=== PATIENT | male | born 2000 | race Caucasian/White ===

== ENCOUNTER 2018-04-30 12:50 | Emergency (ER) | payer MEDICAID, SELFPAY ==
[2018-04-30 12:51] VITALS: BP 114/65; PULSE 63; RESP 16; TEMP 36.8; O2SAT 97; BMI 18.8
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
[2018-04-30] MEDS: Naproxen 500 MG Tablet PO (13:16)
== END 2018-04-30 13:34 | disposition home or self-care (01) ==
PROVIDERS: Emergency Provider Emergency Medicine; Family Provider Pediatrics; PCP Pediatrics
DX: S90.01XA Contusion of right ankle, initial encounter (principal); W22.8XXA Striking against or struck by other objects, initial encounter; Y93.55 Activity, bike riding; Y92.830 Public park as the place of occurrence of the external cause; Y99.8 Other external cause status
CPT/HCPCS: 73610; 99283

== ENCOUNTER 2019-03-20 14:19 | Emergency (ER) | payer SELFPAY ==
[2019-03-20 14:20] VITALS: BP 132/70; PULSE 76; RESP 14; TEMP 36.7; O2SAT 98; BMI 19.5
--- NOTE | 2019-03-20 15:04 | ED.VIS.DENTA ---
History of Present Illness Chief Complaint: Dental Informant: Patient Onset: Weeks - 1 Context: Gradual Onset Timing: Waxes and wanes Quality: ache/sore Location: right lower molars Current Severity: Moderate Maximum Severity: Moderate Worsened by: eating Relieved by: - - pcn Associated Symptoms: Jaw Swelling Narrative: Dental pain and swelling that was improved after he started taking some leftover penicillin, but now penicillin is not helping so he stopped taking it 2 days ago. No fevers or systemic symptoms or trouble breathing. Past Medical History - Allergies and Home Meds Allergies/Adverse Reactions: Allergies venom-honey bee [bee venom (honey bee)] Allergy (Verified 04/30/18 12:53) Swelling Primary Care Physician: Leonor Laura MD [Primary Care Provider] - Smoking Status: Current every day smoker Review of Systems General: Denies: Chills, Fever ENT: Reports: - - Dental pain. Denies: Sore throat Respiratory: Denies: Dyspnea, Cough, Dyspnea on exertion Skin: Denies: Rash, Wounds Physical Exam Vital Signs/Narrative: Vital Signs Temp Pulse Resp BP Pulse Ox 03/20/19 14:20 98.1 F 76 14 132/70 H 98 Inital Vital Signs reviewed: Yes General: Well nourished, Well developed Head: Normocephalic, Atraumatic Mouth/Throat: Dental abscess - Near first and second molars, left mandibular. Focal swelling around the jaw on the left opposite this. With pushing in the gingiva and associated soft tissues that appear distended, pus starts pooling in his mouth that he states tastes foul. Neck: Supple, No lymphadenopathy, Nontender, No JVD Diagnostic/Tx/Re-eval - Medical Decision Making Patient was given some water to rinse with, advised to continue pushing on the affected area to drain the abscess, I do not think he needs incision and drainage based on this now, we will place him on clindamycin and we advised using a probiotic and/or eating yogurt and following up with dentistry after the infection is under control. He is comfortable with this plan. I offered pain medications and he declines. ED Disposition - Plan for ED Patient: Disposition: Home or Assisted Living Diagnosis: Abscess, dental Instructions: ED Abscess Dental Prescriptions: Clindamycin [Cleocin] 300 mg PO 4X/DAY #80 cap Referrals: Dentist,Your [STAFF PHYSICIAN] - 5-7 Days
[2019-03-20 15:09] VITALS: TEMP 36.6
== END 2019-03-20 15:19 | disposition home or self-care (01) ==
PROVIDERS: Emergency Provider Emergency Medicine; Family Provider Pediatrics; PCP Pediatrics
DX: K04.7 Periapical abscess without sinus (principal); F17.200 Nicotine dependence, unspecified, uncomplicated
CPT/HCPCS: 99282

== ENCOUNTER 2019-04-26 00:49 | Emergency (ER) | payer SELFPAY ==
[2019-04-26 00:50] VITALS: BP 148/77; PULSE 90; RESP 16; TEMP 37.5; O2SAT 97; BMI 20.7
--- NOTE | 2019-04-26 01:05 | ED.VISSUMM ---
- ER Visit Summary Date of Service: 04/26/19 Chief Complaint: Dental infection History of Present Illness: The patient is a 19 M who presents with swelling of the left mandible. Patient states 3 weeks ago he had an abscess that spontaneously stopped was draining. He was started on clindamycin and it improved. He states now the past couple days he is felt to come back with swelling and it was draining but now it is no longer draining. He has appointment 2 weeks with Sonya escamilla. Physical Examination: Afebrile vital signs are stable There is some mild swelling along the left mandible. No facial erythema. There is some swelling along the lateral posterior molar gumline. There is no fluctuance. There is an area that he can tell was probably draining at one point. There is focal decay. There is no trismus. No floor the mouth swelling. Emergency Department Course and Treatment: There is mild gum swelling but no fluctuance and I do not believe going to get any significant amount of pus with incision and drainage at this time. I will start him on clindamycin and chlorhexidine rinses. He was advised he may need to have this drained if it progresses to that point. Impression: 1. Dental abscess This note was generated with [employer] dictation software. It may contain incorrect words, spelling, and punctuation that were not noted in review of the chart prior to signing ED Disposition - Plan for ED Patient: Disposition: Home or Assisted Living Instructions: Dental Abscess Prescriptions: Chlorhexidine 15 ml PO BID 10 Days #300 ml Prescription Printed Clindamycin [Cleocin] 300 mg PO 4X/DAY #80 cap Prescription Printed Additional Instructions: Follow-up with your dentist as soon as possible Your abscess may get to the point where it may require incision and drainage. Monitor for facial redness.
[2019-04-26] MEDS: Clindamycin HCl 150 MG Capsule 450 MG PO (01:28)
[2019-04-26 01:30] VITALS: BP 135/78; PULSE 82; RESP 17; O2SAT 97
== END 2019-04-26 01:33 | disposition home or self-care (01) ==
LOC: ED 01:26
PROVIDERS: Emergency Provider Emergency Medicine; Family Provider Pediatrics; PCP Pediatrics
DX: K04.7 Periapical abscess without sinus (principal); Z72.0 Tobacco use
CPT/HCPCS: 99283

== ENCOUNTER 2019-11-26 05:36 | Emergency (ER) | payer OTHER, SELFPAY ==
[2019-11-26 05:37] VITALS: BP 127/81; PULSE 69; RESP 16; TEMP 36.3; O2SAT 100
--- NOTE | 2019-11-26 05:46 | ED.VISSUMM ---
- ER Visit Summary Date of Service: 11/26/19 Chief Complaint: Dental pain History of Present Illness: The patient is a 19 M with no dentist. He reports that he is left mandibular dental pain that began yesterday. Is a sharp, stabbing pains 1010 at worst and 6 out of 10 currently. Is worsened by hot and cold temperatures. Is relieved by ibuprofen. Does report he had similar symptoms previously. He denies any constitutional symptoms. No fever, chills, nausea, or vomiting. Physical Examination: Vitals: Stable. Afebrile. Mouth: No trismus. No edema of the floor of the mouth. Pain with percussion of left mandibular second and third molars. There is no focal abscess. No facial swelling. General: A&O x 3. NAD. Cardiovascular exam: Regular rate and rhythm, no murmur, rub or gallop. Respiratory exam: Clear to auscultation bilaterally. No wheezes or stridor. Abdominal exam: Soft, nontender, nondistended, normal bowel sounds. No peritoneal signs. Extremity: No clubbing, cyanosis, or edema. Emergency Department Course and Treatment: Patient was treated penicillin and Tylenol. Treatment Plan: Patient will be discharged penicillin. Instructed use Tylenol and/or ibuprofen for pain. A list of local dentist was given. He is instructed to follow-up the dentist as soon as possible. Return to the emergency department for any worsening symptoms. Disposition: To home in improved and stable condition. Impression: 1. Dental pain. This note was generated with [employer] dictation software. It may contain incorrect words, spelling, and punctuation that were not noted in review of the chart prior to signing ED Disposition - Plan for ED Patient: Instructions: Dental Pain Prescriptions: Penicillin V Potassium 500 mg PO 4X/DAY #40 tablet Referrals: Dentist,Your [STAFF PHYSICIAN] - As soon as possible
[2019-11-26] MEDS: Acetaminophen 500 MG Tablet 1000 MG PO (05:58)
[2019-11-26] MEDS: Penicillin Vk 250 MG Tablet 500 MG PO (05:59)
[2019-11-26 06:00] VITALS: RESP 14
== END 2019-11-26 06:00 | disposition home or self-care (01) ==
PROVIDERS: Emergency Provider Emergency Medicine; PCP Pediatrics; Referring Provider Pediatrics
DX: K08.89 Other specified disorders of teeth and supporting structures (principal); Z72.0 Tobacco use
CPT/HCPCS: 99283

== ENCOUNTER 2019-12-19 14:53 | Emergency (ER) | payer OTHER, SELFPAY ==
[2019-12-19 14:54] VITALS: BP 125/75; PULSE 73; RESP 16; TEMP 37.3; O2SAT 99; BMI 19.5
[2019-12-19] MEDS: 0.9% Normal Saline 1,000 ML 1000 ML IV (16:17)
[2019-12-19] MEDS: Acetaminophen 500 MG Tablet 1000 MG PO (16:17)
[2019-12-19] MEDS: Ondansetron 4 MG/2 ML Vial IV (16:17)
[2019-12-19 16:41] LABS: Absolute Lymphocyte Count 0.75 X10^3/uL (0.83-4.51); Absolute Neutrophil Count 1.7 X10^3/uL (2.0-7.7); Basophil# 0.01 X10^3/uL; Basophil% 0.3 % (0-1); Hematocrit 43.4 % (40-54); Hemoglobin 15.8 g/dL (13.0-16.5); Lymphocyte # 0.75 X10^3/ul (4.0); Lymphocyte % 24.4 % (19-41); Mean Corp Hgb Conc 36.4 g/dL (32-36); Mean Corpuscular Hgb 32.3 pg (27.0-32.0); Mean Corpuscular Volume 88.8 fL (80-94); Mean Platelet Vol. 9.5 fl (6.2-12.0); Monocyte# 0.62 X10^3/uL; Monocyte% 20.1 % (0-10); NRBC Flagged by Analyzer 0 % (0-5); Neutrophil % 55.2 % (47-70); Platelet Count 174 K/mm3 (150-450); RBC Distribution Width CV 11.5 % (11.6-14.6); RBC Distribution Width SD 36.8 fl (35.1-43.9); Red Blood Count 4.89 M/mm3 (4.6-6.2); White Blood Count 3.1 K/mm3 (4.4-11.0)
[2019-12-19 16:47] LABS: Anion Gap 7 (5-15); BUN 14 mg/dL (7-18); BUN/Creat Ratio 15.2 RATIO (10-20); Calcium,Total 8.6 mg/dL (8.5-10.1); Chloride 100 mmol/L (98-107); Creatinine, Serum 0.92 mg/dL (0.70-1.30); EST Glomerular Filtration Rate 109 mL/min (>60); Est Glom Filt Rate - Afr Amer 132 mL/min (>60); Estimated Creatinine Clearance 114.08 ml/min; Glucose 104 mg/dL (74-106); Potassium 3.3 mmol/L (3.5-5.1); Sodium Level 134 mmol/L (136-145)
[2019-12-19 16:54] VITALS: BP 117/63; PULSE 66; RESP 18; TEMP 37.8; O2SAT 97
--- NOTE | 2019-12-19 17:43 | ED.VISSUMM ---
- ER Visit Summary Date of Service: 12/19/19 Chief Complaint: Flulike symptoms and right ear pain History of Present Illness: The patient is a 19 M who presents with flulike symptoms and right ear pain that began today. Patient states he feels like he has the stomach flu. Patient also complains of pain in his right ear that began today. Patient states it is stabbing. Patient states that is localized to the right ear. Patient admits to subjective chills. Patient admits to nausea but denies any vomiting. Patient admits to diarrhea. Patient admits to a cough with some shortness of breath. Patient also admits to a headache. Patient denies any melena or hematochezia. Physical Examination: Vital signs are stable. Patient is afebrile. Patient is in no acute distress. Oral mucosa is pink and moist. Oropharynx is clear. The right tympanic membrane is erythematous. The left tympanic membrane is clear. Neck is supple. Trachea is midline. No JVD or lymphadenopathy. Heart was regular rate and rhythm. Lungs are clear and equal bilaterally. Abdomen is soft. Bowel sounds are normal. There is no tenderness. Cranial nerves II through XII are intact. There are no focal motor or sensory deficits noted. Test Results: Influenza swab was obtained and was positive for influenza B. CBC shows a white blood cell count of 3.1. Potassium was 3.3. The remaining labs are within normal limits. Emergency Department Course and Treatment: Patient was given IV fluids, Tylenol, and Zofran. Patient was given prescriptions for Tamiflu and amoxicillin. Patient was instructed to take Tylenol or ibuprofen as needed for any fevers or pain. Patient was instructed to follow-up with his primary care physician in 5 to 7 days. Patient understood and was agreeable with the plan. All questions were answered. Disposition: Discharge home Impression: 1. Influenza B 2. Right otitis media This note was generated with [employer] dictation software. It may contain incorrect words, spelling, and punctuation that were not noted in review of the chart prior to signing ED Disposition - Plan for ED Patient: Disposition: Home or Assisted Living Diagnosis: Influenza B, Acute right otitis media Instructions: INFLUENZA (Adult), OTITIS MEDIA, Abx Tx (Adult) Prescriptions: Amoxicillin 500 mg PO TID #30 tab Prescription Printed Oseltamivir Phosphate [Tamiflu] 75 mg PO BID #10 cap Prescription Printed Referrals: Leonor Laura MD [Primary Care Provider] - 5-7 Days
== END 2019-12-19 17:59 | disposition home or self-care (01) ==
PROVIDERS: Emergency Provider Emergency Medicine; PCP Pediatrics
DX: J10.83 Influenza due to other identified influenza virus with otitis media (principal); H66.91 Otitis media, unspecified, right ear; Z72.0 Tobacco use
CPT/HCPCS: 80048; 85025; 87804; 96361; 96374; 99284; J7030; A4216; J2405

== ENCOUNTER 2021-06-24 11:13 | Emergency (ER) | payer SELFPAY ==
[2021-06-24 11:14] VITALS: BP 136/103; PULSE 63; RESP 19; TEMP 35.8; O2SAT 98; BMI 19.3
--- NOTE | 2021-06-24 11:27 | CT_ITS ---
STUDY: CT ABDOMEN AND PELVIS WITHOUT CONTRAST REASON FOR EXAM: Male, 21 years old. Kidney Stone RADIATION DOSAGE (If Supplied By Facility): CTDIvol = ( 6.08 ) mGy, DLP = ( 312.74 ) mGycm TECHNIQUE: Transaxial images were obtained from the dome of the diaphragm to the symphysis pubis without oral contrast, and without intravenous contrast. Sagittal and coronal images were reconstructed. Individualized dose optimization techniques were used for this CT. COMPARISON: None. FINDINGS: The visualized lung bases are unremarkable. The visualized portions of the heart are within normal limits. Normal liver. Normal gallbladder and extrahepatic biliary system. Normal spleen. Normal pancreas. Normal bilateral adrenal glands. Bilateral nonobstructing renal stones. 3 mm obstructing stone at the right ureterovesical junction with moderate ureteral dilatation and hydronephrosis. Normal visualized stomach. Normal small intestine. Normal colon. The appendix is visualized and appears normal. Normal abdominal aorta. Normal inferior vena cava. Normal retroperitoneum. Normal urinary bladder. Normal abdominal wall. Normal osseous structures. CT/Abdomen/Pelvis without Cont IMPRESSION: 3 mm obstructing stone at the right ureteral vesicle junction with moderate ureteral dilatation and hydronephrosis Electronically Signed: Nolberto Madera MD at 12:33 EDT Tel , Service support ,
--- NOTE | 2021-06-24 11:30 | EDS_ITS ---
HPI History of Present Illness Chief Complaint: Flank Pain Informant: patient Onset/Context/Timing Onset: Hours Context: Sudden Onset Timing: Continuous and Waxes and wanes Quality: Severe pain Location: Right flank radiating anteriorly Current Severity: Severe Maximum Severity: Severe Worsened by: Nothing Relieved by: Nothing Associated Symptoms Associated Symptoms: Nausea and vomiting Narrative Narrative: Patient is a 21-year-old male with no significant past medical history who presents with abrupt onset of right flank pain that radiates anteriorly. This started 1 hour prior to presentation. States he was laying in bed. He reports nausea and vomiting. He denies blood or coffee grounds in his emesis. He denies history of kidney stone. Denies family history of kidney stone. He has no other complaints. Prior similar symptoms: No Recent Illness/Hospitalization: No PFSH PFSH Home Medications amoxicillin 500 mg PO TID #30 tab 12/19/19 [Rx Last Taken Unknown] oseltamivir 75 mg PO BID #10 cap 12/19/19 [Rx Last Taken Unknown] naproxen 500 mg PO BID #14 tab 06/24/21 [Rx Last Taken Unknown] oxycodone-acetaminophen 1 tab PO Q6H PRN PRN 5 Days #20 tablet 06/24/21 [Rx Last Taken Unknown] Allergy/AdvReac Type Severity Reaction Status Date / Time venom-honey bee Allergy Swelling Verified 06/24/21 11:14 [bee venom (honey bee)] Social History (Updated 06/24/21 @ 11:[address] Emeka Hodges MD) household members: other Smoking Status: Current every day smoker tobacco type: cigarettes alcohol intake: current alcohol intake frequency: other substance use type: does not use ROS ROS ED Constitutional Constitutional ED: Denies chills, fever(s), subjective or sweats Eyes Eyes: Denies blurry vision or change in vision ENT ENT ED: Denies ear pain, rhinorrhea or sore throat Cardiovascular Cardiovascular: Denies chest pain, orthopnea or palpitations Respiratory/Chest Respiratory/Chest: Denies cough, dyspnea, dyspnea on exertion or orthopnea Gastrointestinal Gastrointestinal: Reports abdominal pain, nausea and vomiting; Denies constipation or diarrhea Genitourinary Genitourinary ED: Denies dysuria or hematuria Musculoskeletal Musculoskeletal: Reports back pain; Denies arthralgias, myalgias or neck pain Integumentary Denies Abrasions or rash Neurologic Neurologic: Denies headache(s) or weakness Endocrine Endocrinology: Denies polydipsia, polyphagia or polyuria EXAM Physical Exam Const Vital Signs: 06/24/21 11:14 Temperature 96.5 F L Temperature Source Temporal Pulse Rate 63 Respiratory Rate 19 H Blood Pressure 136/103 H Blood Pressure Mean 114 Pulse Ox 98 Oxygen Delivery Method Room Air Positive well nourished and well developed General Appearance ED: well developed; Negative for NAD HEENT Reports TM's clear and moist mucous membranes HEENT Narrative: Head is atraumatic normocephalic. Tympanic Membrane ED: Yes TM's clear Eyes PERRL and EOMs intact bilaterally General Eye ED: Negative for pale conjunctiva or scleral icterus Neck no lymphadenopathy, supple and no JVD Chest Wall inspection of chest normal Resp normal respiratory effort and clear to auscultation bilaterally Cardio regular rate, regular rhythm, S1 normal heart sound, S2 normal heart sound and no murmurs GI normal to inspection, nondistended, normoactive bowel sounds and non-tender Palpation: soft Back/Spine no CVA tenderness Cervical Spine: Negative for cervical spine tenderness Thoracic Spine / Upper Back: Negative for thoracic spinal tenderness Extremity normal to inspection General Extremety ED: Negative for edema or tenderness General Extremity: Negative for edema Neuro oriented x3, CN's II-XII intact bilaterally and no sensory deficits noted Sensorium / Orientation: alert Motor Exam: strength 5/5 throughout Psych mental status grossly normal Skin no rashes or lesions noted and no wounds MDM MDM MDM Narrative Medical decision making narrative: Patient presents with acute flank pain consistent with a obstructing ureteral stone. Patient was medicated with Zofran, Toradol and morphine for his nausea and pain. CT was obtained to evaluate size and location of stone. Urine to rule out urinary tract infection. CBC to assess white count and basic metabolic panel to assess renal function. Patient was reassessed at 1 3 5 PM. He is markedly improved. Plan is discharged to home with pain medicine and referral to urology. Lab Data Attestation: I reviewed the patient's lab results. Lab results narrative: There is no evidence of infection. Renal function is normal. CBC is normal. Labs: Laboratory Results - last 24 hr 06/24/21 06/24/21 06/24/21 11:21 11:21 12:40 WBC 9.4 RBC 5.30 Hgb 16.8 H Hct 47.3 MCV 89.2 MCH 31.7 MCHC 35.5 RDW Std Deviation 39.4 RDW Coeff of Shahnaz 12.0 Plt Count 355 MPV 9.2 Immature Gran % (Auto) 0.300 Neut % (Auto) 47.7 Lymph % (Auto) 37.6 Hemphill % (Auto) 11.0 H Eos % (Auto) 3.1 Baso % (Auto) 0.3 Absolute Neuts (auto) 4.5 Absolute Lymphs (auto) 3.52 Nucleated RBC % 0 Sodium 139 Potassium 3.6 Chloride 109 H Carbon Dioxide 24.0 Anion Gap 6 BUN 19 H Creatinine 0.98 Estim Creat Clear Calc 104.30 Est GFR (MDRD) Af Amer 121 Est GFR (MDRD) Non-Af 100 BUN/Creatinine Ratio 19.3 Glucose 126 H Calcium 9.6 Urine Color Yellow Urine Clarity Cloudy Urine pH 7.0 Ur Specific Wadsworth 1.015 Urine Protein 30 H Urine Glucose (UA) Normal Urine Ketones 5 H Urine Occult Blood 250 H Urine Nitrite Negative Urine Bilirubin Negative Urine Urobilinogen Normal Ur Leukocyte Esterase 25 H Urine RBC 25-50 SEEN Urine WBC 0-5 SEEN Ur Squamous Epith Cells 0-5 SEEN Urine Bacteria RARE Hyaline Casts 0-5 SEEN Urine Mucus 1+ Radiography Diagnostic Testing: Radiology Impression Abdomen/Pelvis CT 06/24/21 11:27 IMPRESSION: 3 mm obstructing stone at the right ureteral vesicle junction with moderate ureteral dilatation and hydronephrosis Electronically Signed: Nolberto Madera MD at 12:33 EDT Tel , Service support , Discharge Plan Triage Chief Complaint: Flank Pain ED Provider: Emeka Hodges Dx/Rx/DC Orders Clinical Impression: Hydronephrosis with urinary obstruction due to ureteral calculus Instructions: ED Kidney Stone w/ Colic Prescriptions: New oxycodone-acetaminophen [oxycodone-acetaminophen] 1 TABLET tablet 1 tab PO Q6H PRN PRN (Reason: pain) 5 Days Qty: 20 RF: 0 naproxen 500 MG tablet 500 mg PO BID Qty: 14 RF: 0 No Action amoxicillin 500 MG tablet 500 mg PO TID Qty: 30 RF: 0 oseltamivir 75 MG capsule 75 mg PO BID Qty: 10 RF: 0 Primary Care Provider: Care Physician,No Primary Referrals: Dayne Tobar MD [STAFF PHYSICIAN] - 3-5 Days Care Physician,No Primary [Primary Care Provider] - Disposition Disposition: Home, Self Care
[2021-06-24] MEDS: Ketorolac 15 MG/ML Vial IV (11:33)
[2021-06-24] MEDS: 0.9% Normal Saline 1,000 ML 250 ML IV (11:33)
[2021-06-24] MEDS: Ondansetron 4 MG/2 ML Vial IV (11:33)
[2021-06-24 11:34] LABS: Absolute Lymphocyte Count 3.52 X10^3/uL (0.83-4.51); Absolute Neutrophil Count 4.5 X10^3/uL (2.0-7.7); Basophil# 0.03 X10^3/uL; Basophil% 0.3 % (0-1); Eosinophil# 0.29 X10^3/uL; Eosinophils% 3.1 % (0-5); Hematocrit 47.3 % (40-54); Hemoglobin 16.8 g/dL (13.0-16.5); Lymphocyte # 3.52 X10^3/ul (0.83-4.51); Lymphocyte % 37.6 % (19-41); Mean Corp Hgb Conc 35.5 g/dL (32-36); Mean Corpuscular Hgb 31.7 pg (27.0-32.0); Mean Corpuscular Volume 89.2 fL (80-94); Mean Platelet Vol. 9.2 fl (6.2-12.0); Monocyte# 1.03 X10^3/uL; NRBC Flagged by Analyzer 0 % (0-5); Neutrophil # 4.45 X10^3/uL (2.7-7.7); Neutrophil % 47.7 % (47-70); Platelet Count 355 K/mm3 (150-450); RBC Distribution Width SD 39.4 fl (35.1-43.9); White Blood Count 9.4 K/mm3 (4.4-11.0)
[2021-06-24] MEDS: Morphine 4 MG/ML Syringe IV ×2 (11:34→13:53)
[2021-06-24 11:41] LABS: Anion Gap 6 (5-15); BUN 19 mg/dL (7-18); BUN/Creat Ratio 19.3 RATIO (10-20); Calcium,Total 9.6 mg/dL (8.5-10.1); Chloride 109 mmol/L (98-107); Creatinine, Serum 0.98 mg/dL (0.70-1.30); EST Glomerular Filtration Rate 100 mL/min (>60); Est Glom Filt Rate - Afr Amer 121 mL/min (>60); Glucose 126 mg/dL (74-106); Potassium 3.6 mmol/L (3.5-5.1); Sodium Level 139 mmol/L (136-145)
[2021-06-24 12:47] LABS: Color, Urine Yellow (Yellow); Glucose, Dipstick Normal (Normal); Ketone-Dipstick 5 mg/dl (Negative); Leukocyte Esterase-Dipstick 25 /ul (Negative); Nitrite-Dipstick Negative (Negative); Occult Blood-Urine 250 /ul (Negative); Protein-Dipstick 30 mg/dl (Negative); Specific Gravity, Urine 1.015 (1.002-1.030); Urine Bilirubin Dipstick Negative (Negative); Urine Clarity Cloudy (Clear); Urine Urobilinogen Normal (Normal)
[2021-06-24 12:53] LABS: Bacteria RARE /hpf (None Seen); Hyaline Cast 0-5 SEEN /lpf (0-5); Mucous, Urine 1+ /hpf (<or=2+); Red Blood Cells-Urine 25-50 SEEN /hpf (0-5); Squamous Epithelial Cells - UA 0-5 SEEN /hpf (0-5); White Blood Cells 0-5 SEEN /hpf (0-5)
[2021-06-24 13:59] VITALS: BP 112/74; PULSE 35; RESP 16; O2SAT 100
== END 2021-06-24 14:00 | disposition home or self-care (01) ==
PROVIDERS: Emergency Provider Emergency Medicine
DX: N13.2 Hydronephrosis with renal and ureteral calculous obstruction (principal); F17.210 Nicotine dependence, cigarettes, uncomplicated
CPT/HCPCS: 74176; 80048; 81001; 85025; 96361; 96374; 96375; 96376; 99283; J7030; J2405

== ENCOUNTER 2021-12-13 18:43 | Emergency (ER) | payer SELFPAY ==
[2021-12-13 18:44] VITALS: BP 114/44; PULSE 53; RESP 16; TEMP 35.9; BMI 20.2
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
[2021-12-13] MEDS: Cefazolin 1 GM/50 ML BAG IV (21:48)
[2021-12-13 22:28] VITALS: BP 109/64; PULSE 55; RESP 16; O2SAT 98
== END 2021-12-13 22:29 | disposition home or self-care (01) ==
PROVIDERS: Emergency Provider Emergency Medicine; Visit Provider Emergency Medicine
DX: S81.032A Puncture wound without foreign body, left knee, initial encounter (principal); F17.210 Nicotine dependence, cigarettes, uncomplicated; X58.XXXA Exposure to other specified factors, initial encounter
CPT/HCPCS: 73562; 96365; 99282; A4216

== ENCOUNTER 2023-01-17 10:15 | Emergency (ER) | payer SELFPAY ==
[2023-01-17 10:16] VITALS: BP 131/79; PULSE 90; RESP 18; TEMP 36.6; O2SAT 97; BMI 21.2
--- NOTE | 2023-01-17 10:30 | RAD_ITS ---
INDICATION: injury EXAMINATION/TECHNIQUE: X-RAY - LEFT XR Hand Min 3 Views 3 VIEWS COMPARISON: None. FINDINGS: SOFT TISSUES: No soft tissue swelling or gas. No radiopaque foreign body. BONES/JOINTS: No acute fracture or subluxation.. Normal alignment. Preservation of the joint space.. No sclerotic or destructive changes observed. RAD/Hand Min 3 Views IMPRESSION: Negative. Electronically Signed: Jerry James MD, [facility] at 10:50 EDT ,
--- NOTE | 2023-01-17 10:30 | EX.ED.UPPERE ---
HPI History of Present Illness HPI Narrative: 23-year-old male was horse playing with his brother yesterday. Got hit in his left thumb and complaining of pain and mild swelling. Primarily at the MCP joint. No prior history. He is right-hand dominant. He is never had surgery to his left hand. He denies any other injuries. Chief Complaint: Upper Extremity Injury Informant: patient Occured/Mechanism Mechanism/Context: Yes injury and Yes blunt trauma Onset/Context/Timing Onset: Yesterday Context: Sudden Onset Timing: Continuous Quality of Pain: Dull and Aching Current Severity: Mild Maximum Severity: Mild Associated Symptoms Associated Symptoms: Negative for Parasthesia, Weakness or Loss of Funtion Narrative Narrative: 23-year-old male injured left thumb yesterday. Today pain and decreased range of motion. No prior history of surgery. No other injuries. Prior similar symptoms: No Recent Illness/Hospitalization: No PFSH PFS Medical History Abscess MRSA (methicillin resistant Staphylococcus aureus) Home Medications cefadroxil 500 mg capsule 500 mg PO BID #10 caps 12/13/21 [Rx Last Taken Unknown] Allergy/AdvReac Type Severity Reaction Status Date / Time venom-honey bee Allergy Swelling Verified 01/17/23 10:16 [bee venom (honey bee)] Social History household members: other Smoking Status: Current every day smoker tobacco type: cigarettes alcohol intake: current alcohol intake frequency: other substance use type: does not use ROS ROS ED ROS Narrative Denies recent illness. Review of Systems ROS Unobtainable: Denies due to encephalopathy Constitutional Constitutional ED: Denies chills or fever(s) Eyes Eyes: Denies blurry vision ENT ENT ED: Denies ear pain Cardiovascular Cardiovascular: Denies chest pain Respiratory/Chest Respiratory/Chest: Denies cough or dyspnea Gastrointestinal Gastrointestinal: Denies abdominal pain Genitourinary Genitourinary ED: Denies dysuria or hematuria Musculoskeletal Musculoskeletal: Denies back pain Integumentary Denies abscess Neurologic Neurologic: Denies headache(s) Psychiatric Psychiatric: Denies anxiety or depression Endocrine Endocrinology: Denies cold intolerance Hematologic/Lymphatic Hematologic/Lymphatic: Denies easy bleeding Allergic/Immunologic Allergic/Immunologic ED: Denies mouth swelling or tongue swelling EXAM Physical Exam Narrative Exam Narrative: 23-year-old male no acute distress. Vital signs stable afebrile. HEENT, neck, heart, lung, abdominal exam unremarkable. Extremities are normal except left thumb he has pain to palpation to the MCP. He is able to do full extension. He is limited flexion due to swelling. There is no gross bony deformity. Both the extensor tendon the left thumb and flexor tendon appear to be intact. He has normal cap refill. Normal sensation. Skins intact. There is no signs of infection or dislocation. The fingers and palm of the left hand are unremarkable. Left wrist, forearm, elbow and upper arm are unremarkable. Const Vital Signs: 01/17/23 10:16 Temperature 97.8 F Temperature Source Temporal Pulse Rate 90 Respiratory Rate 18 Blood Pressure 131/79 H Blood Pressure Mean 96 Pulse Ox 97 Oxygen Delivery Method Nasal Cannula Positive well nourished and well developed; Negative for obese, cachectic, contractures or unkempt General Appearance ED: well developed and NAD; Negative for unkempt, cachectic, contractures, cyanotic or diaphoretic Nutritional Appearance: Negative for cachectic or obese HEENT Reports moist mucous membranes normocephalic and atraumatic; Negative for trauma or tenderness Eyes PERRL and EOMs intact bilaterally General Eye ED: Negative for other Neck full ROM and supple General: Negative for tenderness Lymph Lymphatic: Negative for other Chest Wall inspection of chest normal and palpation of chest normal Chest: Negative for other Resp normal respiratory effort and clear to auscultation bilaterally Effort and Inspection: Negative for pain with movement Auscultation: Negative for rales, rhonchi or wheezes Cardio regular rate, regular rhythm, S1 normal heart sound, S2 normal heart sound and no murmurs Rate: Negative for bradycardia or tachycardic Rhythm: Negative for abnormal rhythm GI non-tender, non-distended and no masses Inspection: Negative for abdominal distention Auscultation: normoactive bowel sounds Palpation: soft; Negative for tender Back/Spine no CVA tenderness General Back: Negative for CVA tenderness Cervical Spine: Negative for cervical spine tenderness Thoracic Spine / Upper Back: Negative for thoracic spinal tenderness Lumbar Spine / Lower Back: Negative for lumbar spinal tenderness Extremity normal to inspection and full ROM General Extremety ED: Negative for edema or other findings General Extremity: Negative for edema or other findings Neuro oriented x3, CN's II-XII intact bilaterally, moves all extremities, no focal motor deficits and no sensory deficits noted Sensorium / Orientation: alert, oriented to person, oriented to place and oriented to time; Negative for orientation impaired, lethargic or stuporous Motor Exam: strength 5/5 throughout Psych mental status grossly normal Appearance: Negative for unkempt Attitude: No agitated Mood & Affect: Negative for depressed, anxious or tearful Skin General Skin Exam: Negative for petechiae Lesions: no lesions Rashes: no rashes Trauma: no lacerations or abrasions; Negative for abrasion or laceration MDM MDM MDM Narrative Medical decision making narrative: 23-year-old male injury yesterday of his left thumb. Clinically I think this is a soft tissue injury we will obtain an x-ray to make sure there is no fracture. Clinically there is no dislocation. Patient was offered but deferred Motrin or Tylenol at this time. History & Record Review Discussion w/independent historian: Patient Radiography Diagnostic Testing: Left hand x-ray, 3 views, interpreted by myself. Shows no acute fracture or dislocation. No acute abnormality. Discharge Plan Triage Chief Complaint: Upper Extremity Injury ED Provider: Mal Villanueva Dx/Rx/DC Orders Clinical Impression: Left thumb sprain Instructions: ED Finger Sprain Prescriptions: No Action cefadroxil 500 mg capsule 500 mg PO BID Qty: 10 0RF Primary Care Provider: Care Physician,No Primary Referrals: Shad Gan MD [Med Staff - Public Health Inspector] - 1 Week if not improving Care Physician,No Primary [Primary Care Provider] - Activity Restrictions/Additional Instructions: Ice and elevate the left hand and thumb to decrease pain and swelling. Ice 2030 minutes each time 4-5 times a day for the next 3 days. Motrin for pain and swelling. Tylenol for pain. This should progressively get better if not follow-up with have it reevaluated and tati-rayed. Disposition Disposition: Home, Self Care
[2023-01-17 11:19] VITALS: RESP 16
== END 2023-01-17 11:20 | disposition home or self-care (01) ==
PROVIDERS: Emergency Provider Emergency Medicine; Visit Provider Emergency Medicine
DX: S63.642A Sprain of metacarpophalangeal joint of left thumb, initial encounter (principal); W51.XXXA Accidental striking against or bumped into by another person, initial encounter; Y93.83 Activity, rough housing and horseplay; Y99.8 Other external cause status; F17.210 Nicotine dependence, cigarettes, uncomplicated
CPT/HCPCS: 73130; 99282